=== PATIENT | male | born 1955 | race Two or more races ===

== ENCOUNTER 2020-05-16 22:08 | Emergency (ER) | payer MEDICAID ==
[~2020-05-16] VITALS: Ht 175.3 cm; Wt 75.1 kg
--- NOTE | 2020-05-16 22:26 | NUR ---
Pt arrives to ed for abd pain. Pt reports he normally does not drink but about 7 days ago he had a stressful situation and drank a bottle of whiskey over a week. Pt reports he normally does not drink and has been sober since. He perfers a sober life. Pt is calm and cooperative and no s/sx of DTs noted. Pt reports his abd pain is near the epigastric area and periumbilicus with no radiation. Pt on arrival asked to put gown on for exam. Awaiting further orders.
[2020-05-16] MEDS ORDERED: MAALOX/HYOSCYAMINE/LIDOCAINE 45 ML BTL PO ONE (22:30)
[2020-05-16] MEDS ORDERED: MAALOX/HYOSCYAMINE/LIDOCAINE 45 ML BTL ONE (22:30)
[2020-05-16 22:33] VITALS: BP 137/80
--- NOTE | 2020-05-16 22:46 | NUR ---
Pt medicated per emar.
[2020-05-16 22:54] LABS: BASOPHILS # (AUTO) 0.09 x10^3/uL (0-0.1); BASOPHILS % (AUTO) 1 % (0-1); EOSINOPHILS # (AUTO) 0.31 x10^3/uL (0-0.4); EOSINOPHILS % (AUTO) 5 % (1-7); LYMPHOCYTES # (AUTO) 1.73 x10^3/uL (1-3.4); LYMPHOCYTES % (AUTO) 26 % (22-44); MD NO; MEAN CORPUSCULAR HGB CONC 34.1 g/dL (33.2-36.2); MEAN CORPUSCULAR VOLUME 99.7 fL (81-97); MEAN PLATELET VOLUME 8.7 fL (7.4-10.4); MONOCYTES # (AUTO) 0.66 x10^3/uL (0.2-0.8); MONOCYTES % (AUTO) 10 % (2-9); NEUTROPHILS # (AUTO) 3.99 x10^3/uL (1.8-6.8); NEUTROPHILS % (AUTO) 59 % (42-75); PLATELET COUNT 141 x10^3/uL (130-400); RED CELL DISTRIBUTION WIDTH 13.6 % (9.4-14.8)
[2020-05-16] MEDS ORDERED: PLEASE ENTER ALLERGIES MC SCH (23:00)
[2020-05-16 23:07] LABS: ALANINE AMINOTRANSFERASE 50 U/L (12-78); ALBUMIN 3.4 g/dL (3.4-5.0); ANION GAP 6 mmol/L (5-15); CALCIUM 8.7 mg/dL (8.5-10.1); CHLORIDE 109 mmol/L (98-107); CREATININE 0.92 mg/dL (0.7-1.3)
[2020-05-16 23:09] LABS: ALKALINE PHOSPHATASE 63 U/L (45-117); BILIRUBIN,TOTAL 0.5 mg/dL (0.2-1.0); TOTAL PROTEIN 6.7 g/dL (6.4-8.2)
--- NOTE | 2020-05-17 00:01 | NUR ---
Report received from SMITA Lozano. This RN to assume care.
--- NOTE | 2020-05-17 00:13 | NUR ---
Discharge instructions given. All questions and concerns addressed. Patient ambulatory with a steady gait. Belongings with patient.
== END 2020-05-17 00:14 | disposition home or self-care (01) ==
LOC: ED 22:38
DX: K29.20 Alcoholic gastritis without bleeding (principal)
CPT/HCPCS: 36415; 76700; 80053; 83690; 85025; 99284

== ENCOUNTER 2020-08-24 21:49 | Emergency (ER) | payer MEDICAID ==
[~2020-08-24] VITALS: Ht 175.3 cm; Wt 77.9 kg
[2020-08-24 22:54] VITALS: BP 127/84
[2020-08-24] MEDS ORDERED: IBUPROFEN 200 MG TABLET ONE (23:20)
[2020-08-24] MEDS ORDERED: IBUPROFEN 200 MG TABLET PO ONE (23:30)
== END 2020-08-24 23:26 | disposition home or self-care (01) ==
LOC: ED 22:21
DX: S16.1XXA Strain of muscle, fascia and tendon at neck level, initial encounter (principal); X58.XXXA Exposure to other specified factors, initial encounter; Y93.89 Activity, other specified; Y92.89 Other specified places as the place of occurrence of the external cause; Y99.8 Other external cause status
CPT/HCPCS: 72050; 99283

== ENCOUNTER 2021-02-06 20:38 | Emergency (ER) | payer MEDICAID ==
[~2021-02-06] VITALS: Ht 175.3 cm; Wt 74.9 kg
[2021-02-06 21:09] VITALS: BP 128/73
[2021-02-06] MEDS ORDERED: IBUPROFEN 600 MG TABLET PO ONE (22:00)
== END 2021-02-06 22:03 | disposition home or self-care (01) ==
LOC: ED 21:30
DX: M25.552 Pain in left hip (principal); Z76.0 Encounter for issue of repeat prescription; F17.210 Nicotine dependence, cigarettes, uncomplicated
CPT/HCPCS: 99406

== ENCOUNTER 2021-03-06 00:43 | Emergency (ER) | payer MEDICAID ==
[~2021-03-06] VITALS: Ht 175.3 cm; Wt 74.3 kg
--- NOTE | 2021-03-06 01:21 | NUR ---
PT OFF UNIT IN IMAGING.
[2021-03-06] MEDS ORDERED: HYDROcodone/APAP 5/325 TABLET PO ONE (01:30)
--- NOTE | 2021-03-06 01:33 | NUR ---
PT C/O OF LEFT HIP PAIN FOR PAST 40 DAYS. CMS INTACT DISTAL TO HIP IN LEFT FOOT. pt in bed. attached to monitors. vss. nadn. ambulated from wheelchair to gurney. BED IN LOW POSITION, RAILS ENGAGED. CALL LIGHT WITHIN REACH. WCTM
--- NOTE | 2021-03-06 01:34 | NUR ---
PT DENIES N/V/D AND ABDOMINAL PAIN
[2021-03-06] MEDS ORDERED: HYDROcodone/APAP 5/325 TABLET ONE (01:42)
[2021-03-06 02:09] VITALS: BP 135/90
--- NOTE | 2021-03-06 02:22 | NUR ---
Patient/Caregiver given discharge instructions and they have confirmed that they understand the instructions. Patient ambulatory with steady gait. NAD, all questions answered appropriately, denies additional needs at this time. No personal belongings left in room after discharge.
== END 2021-03-06 02:23 | disposition home or self-care (01) ==
LOC: ED 00:45
DX: M16.12 Unilateral primary osteoarthritis, left hip (principal); F17.210 Nicotine dependence, cigarettes, uncomplicated; Z72.9 Problem related to lifestyle, unspecified
CPT/HCPCS: 99406

== ENCOUNTER 2021-04-12 10:18 | Emergency (ER) | payer MEDICAID ==
[~2021-04-12] VITALS: Ht 175.3 cm; Wt 74.1 kg
[2021-04-12 10:20] VITALS: BP 112/72
[2021-04-12] MEDS ORDERED: KETOROLAC 30 MG/1 ML ONE (10:45)
[2021-04-12] MEDS ORDERED: KETOROLAC 30 MG/1 ML IM ONE (11:00)
== END 2021-04-12 11:04 | disposition home or self-care (01) ==
LOC: ED 10:20
DX: M16.12 Unilateral primary osteoarthritis, left hip (principal); Z76.0 Encounter for issue of repeat prescription
CPT/HCPCS: 96372; 99283; J1885

== ENCOUNTER 2021-04-30 08:02 | Emergency (ER) | payer MEDICAID ==
[~2021-04-30] VITALS: Ht 165.1 cm; Wt 76.7 kg
[2021-04-30 08:05] VITALS: BP 119/71
--- NOTE | 2021-04-30 09:07 | NUR ---
CENTER ADMINISTRATOR: DISCUSSED PT WITH DR SMITH, HAND XRAY ORDERED.
--- NOTE | 2021-04-30 09:18 | NUR ---
PT NOT IN LOBBY WHEN CALLED FOR XRAY
--- NOTE | 2021-04-30 09:50 | NUR ---
CALLED FOR PT. PT NOT IN LOBBY
== END 2021-04-30 09:53 | disposition left against medical advice (07) ==
LOC: ED 09:37
DX: M79.89 Other specified soft tissue disorders (principal); Z53.21 Procedure and treatment not carried out due to patient leaving prior to being seen by health care provider